=== PATIENT | male | born 1955 | race Caucasian/White ===

== ENCOUNTER 2017-04-28 10:50 | Emergency (ER) | payer SELFPAY ==
[~2017-04-28] VITALS: Ht 175.3 cm; Wt 81.1 kg
[~2017-04-28 10:50] MED LIST: FLEXERIL10 MG PO; MEDROL DOSEPAK4 MG PO; NAPROSYN500 MG PO
[2017-04-28 11:24] LABS: EOSINOPHIL (%) 0.5 % (0-5); EOSINOPHIL COUNT 0.1 K/uL (0-0.3); HEMATOCRIT 42.3 % (38.0-50.0); IMMATURE GRANULOCYTE (%) 0.7 % (0.0-0.7); IMMATURE GRANULOCYTE COUNT 0.1 K/uL; INSTRUMENT ABS NEUTROPHIL CT 10.8 K/uL; LYMPHOCYTE COUNT 1.6 K/uL (1.0-2.8); MCH 32.1 PG (29.0-34.0); MCHC 33.6 G/DL (30.0-36.0); MCV 95.7 FL (86-99); MEAN PLAT.VOLUME 9.9 uM^3 (9.0-12.4); MONOCYTE (%) 6.1 % (3-12); MONOCYTE COUNT 0.8 K/uL (0-0.8); NEUTROPHIL COUNT 10.8 K/uL (1.8-6.4); PLATELET COUNT 317 K/uL (156-360); RBC DIS.WIDTH-CV 13.5 % (11.8-14.6); RBC DIS.WIDTH-SD 48.2 % (39-53); RED BLOOD COUNT 4.42 M/uL (4.00-5.50); WHITE BLOOD COUNT 13.4 K/uL (4.1-10.2)
[2017-04-28 11:35] LABS: CHLORIDE 102 mEq/L (99-109); SODIUM 137 mEq/L (136-147)
[2017-04-28 11:36] LABS: GLUCOSE 103 mg/dL (70-99)
[2017-04-28 11:38] LABS: ANION GAP 13 MEQ/L (2-14)
[2017-04-28 11:40] LABS: GFR ESTIMATE (CALCULATED) > 59 mL/min/
[2017-04-28 11:41] LABS: UREA NITROGEN (BUN) 14 mg/dL (9-23)
[2017-04-28] MEDS ORDERED: PERCOCET 5/31 TABLET PO (14:22)
[2017-04-28 14:45] VITALS: BP 116/68
== END 2017-04-28 14:47 | disposition home or self-care (01) ==
LOC: EME 10:50
PROVIDERS: Emergency Medicine
DX: S30.0XXA Contusion of lower back and pelvis, initial encounter (principal); S32.029A Unspecified fracture of second lumbar vertebra, initial encounter for closed fracture; W12.XXXA Fall on and from scaffolding, initial encounter; Y99.0 Civilian activity done for income or pay; F17.200 Nicotine dependence, unspecified, uncomplicated
CPT/HCPCS: 70450; 72132; 74177; 80048; 85025; 99281; 99285; J2270; J7030

== ENCOUNTER 2017-04-30 20:22 | Emergency (ER) | payer SELFPAY ==
[~2017-04-30] VITALS: Ht 175.3 cm; Wt 81.8 kg
[~2017-04-30 20:22] MED LIST changes: +PERCOCET 5/31 TABLET PO
[2017-04-30] MEDS ORDERED: LIDODERM 5% P1 PATCH TD (22:42)
[2017-04-30] MEDS ORDERED: FLEXERIL10 MG PO (22:47)
[2017-04-30] MEDS ORDERED: NAPROSYN500 MG PO (22:47)
[2017-04-30 23:02] VITALS: BP 155/92
== END 2017-04-30 23:06 | disposition home or self-care (01) ==
LOC: EME 20:22
DX: M54.6 Pain in thoracic spine (principal); S32.029D Unspecified fracture of second lumbar vertebra, subsequent encounter for fracture with routine healing; R06.2 Wheezing; F17.200 Nicotine dependence, unspecified, uncomplicated; Z71.6 Tobacco abuse counseling
CPT/HCPCS: 71020; 99281; 99284; J3010